=== PATIENT | female | born 1985 | race Caucasian/White ===

== ENCOUNTER 2017-09-13 17:22 | Emergency (ER) | payer OTHER | END 2017-09-13 18:56 | disposition home or self-care (01) | LOC: FTE 17:22 | DX: S80.862A Insect bite (nonvenomous), left lower leg, initial encounter (principal); S80.861A Insect bite (nonvenomous), right lower leg, initial encounter; W57.XXXA Bitten or stung by nonvenomous insect and other nonvenomous arthropods, initial encounter; Y92.9 Unspecified place or not applicable | CPT/HCPCS: 99283; Z7502 ==

== ENCOUNTER 2017-10-11 20:32 | Emergency (ER) | payer OTHER ==
[2017-10-11 21:37] LABS: URINE BLOOD (Dip) POC 2+ (NEGATIVE); URINE GLUCOSE (Dip) POC Negative (NEGATIVE); URINE KETONES (Dip) POC Trace (NEGATIVE); URINE LEUKOCYTE EST (Dip) POC Negative (NEGATIVE); URINE NITRITE (Dip) POC Negative (NEGATIVE); URINE TOTAL PROTEIN POC Negative (NEGATIVE)
[2017-10-11 21:37] LABS: URINE PH (Dip) POC 5.5 (5.0-8.5)
== END 2017-10-11 22:01 | disposition home or self-care (01) ==
LOC: FTE 20:32
DX: R21 Rash and other nonspecific skin eruption (principal)
CPT/HCPCS: 81003; 99283

== ENCOUNTER 2017-11-02 18:58 | Emergency (ER) | payer OTHER | END 2017-11-02 21:15 | disposition home or self-care (01) | LOC: FTE 18:58 | DX: S80.861A Insect bite (nonvenomous), right lower leg, initial encounter (principal); S80.862A Insect bite (nonvenomous), left lower leg, initial encounter; W57.XXXA Bitten or stung by nonvenomous insect and other nonvenomous arthropods, initial encounter; Y92.9 Unspecified place or not applicable | CPT/HCPCS: 99283; Z7502 ==

== ENCOUNTER 2017-11-09 19:19 | Emergency (ER) | payer OTHER ==
[2017-11-09] MEDS: ACETAMINOPHEN 325 MG TAB PO (19:58)
== END 2017-11-09 20:06 | disposition home or self-care (01) ==
LOC: FTE 19:19
DX: S80.869A Insect bite (nonvenomous), unspecified lower leg, initial encounter (principal); S40.869A Insect bite (nonvenomous) of unspecified upper arm, initial encounter; W57.XXXA Bitten or stung by nonvenomous insect and other nonvenomous arthropods, initial encounter; Y92.9 Unspecified place or not applicable
CPT/HCPCS: 99283; Z7502

== ENCOUNTER 2018-09-09 11:50 | Emergency (ER) | payer OTHER ==
[2018-09-09 13:22] LABS: URINE BLOOD (Dip) POC 2+ (NEGATIVE); URINE GLUCOSE (Dip) POC Negative (NEGATIVE); URINE KETONES (Dip) POC Trace (NEGATIVE); URINE LEUKOCYTE EST (Dip) POC Negative (NEGATIVE); URINE NITRITE (Dip) POC Negative (NEGATIVE); URINE TOTAL PROTEIN POC 1+ (NEGATIVE)
== END 2018-09-09 14:10 | disposition home or self-care (01) ==
LOC: FTE 14:10
DX: N93.9 Abnormal uterine and vaginal bleeding, unspecified (principal); Z32.02 Encounter for pregnancy test, result negative
CPT/HCPCS: 81003; 81025; 99283

== ENCOUNTER 2018-09-18 15:40 | Emergency (ER) | payer OTHER ==
[2018-09-18 17:52] LABS: ADD MAN DIFF? NO
[2018-09-18 17:54] LABS: WHITE BLOOD COUNT 8.3 10^3/ul (4.8-10.8)
[2018-09-18 17:54] LABS: BASOPHILS % 0.5 % (0.0-2.0); EOSINOPHILS # 0.1 10^3/ul (0.0-0.5); EOSINOPHILS % 0.8 % (0.0-7.0); HEMATOCRIT 37.9 % (37.0-47.0); HEMOGLOBIN 12.1 g/dl (12.0-16.0); LYMPHOCYTES # 1.4 10^3/ul (0.8-2.9); LYMPHOCYTES % 16.8 % (15.0-51.0); MEAN CORPUSCULAR HEMOGLOBIN 29.6 pg (29.0-33.0); MEAN CORPUSCULAR HGB CONC 31.9 g/dl (32.0-37.0); MEAN CORPUSCULAR VOLUME 92.7 fl (82.0-101.0); MEAN PLATELET VOLUME 9.7 fl (7.4-10.4); MONOCYTE # 0.4 10^3/ul (0.3-0.9); MONOCYTES % 5.3 % (0.0-11.0); NEUTROPHIL # 6.3 10^3/ul (1.6-7.5); NEUTROPHILS % 76.2 % (39.0-77.0); PLATELET COUNT 206 10^3/UL (140-415); RED BLOOD COUNT 4.09 10^6/ul (4.20-5.40); RED CELL DISTRIBUTION WIDTH 12.5 % (11.5-14.5)
[2018-09-18] MEDS: IBUPROFEN 600 MG TAB PO (18:00)
[2018-09-18 18:06] LABS: ADD UMIC YES; UR ASCORBIC ACID NEGATIVE (NEGATIVE); UR BACTERIA FEW /HPF (NONE SEEN); UR BILIRUBIN (Dip) NEGATIVE (NEGATIVE); UR BLOOD (Dip) NEGATIVE (NEGATIVE); UR CLARITY CLEAR (CLEAR); UR COLOR YELLOW (YELLOW); UR GLUCOSE (Dip) NEGATIVE (NEGATIVE); UR KETONES (Dip) NEGATIVE (NEGATIVE); UR LEUKOCYTE ESTERASE (Dip) TRACE Leu/ul (NEGATIVE); UR NITRITE (Dip) NEGATIVE (NEGATIVE); UR RBC 2 /HPF (0-5); UR SPECIFIC GRAVITY (Dip) 1.014 (1.003-1.030); UR SQUAMOUS EPITHELIAL CELL MODERATE /HPF (FEW); UR TOTAL PROTEIN (Dip) NEGATIVE (NEGATIVE); UR UROBILINOGEN (Dip) NEGATIVE (NEGATIVE); UR WBC 34 /HPF (0-5)
[2018-09-18 18:18] LABS: ANION GAP 8 (5-13); BLOOD UREA NITROGEN 12 mg/dl (7-20); CALCIUM 8.7 mg/dl (8.4-10.2); CARBON DIOXIDE 29 mmol/L (21-31); CHLORIDE 105 mmol/L (97-110); CREATININE 0.71 mg/dl (0.44-1.00); Estimated GFR > 60 mL/min (>60); GLUCOSE 74 mg/dl (70-220); SODIUM 142 mmol/L (135-144)
[2018-09-18 18:30] LABS: TROPONIN-I < 0.012 ng/ml (0.000-0.120)
== END 2018-09-18 19:40 | disposition home or self-care (01) ==
LOC: FTE 15:40
DX: N39.0 Urinary tract infection, site not specified (principal); N64.4 Mastodynia; M79.605 Pain in left leg
CPT/HCPCS: 36415; 71045; 80048; 81001; 81025; 84484; 85025; 93005; 99285-25